=== PATIENT | female | born 2000 | race Two or more races ===

== ENCOUNTER 2024-12-05 19:17 | Emergency (ER) | payer OTHER ==
[2024-12-05 19:56] VITALS: BP 125/62; PULSE 92; RESP 18; TEMP 97.4; BMI 23.1
[2024-12-05] MEDS ORDERED: ONDANSETRON 4 MG/2 ML VIAL ONE (21:45)
[2024-12-05] MEDS ORDERED: ACETAMINOPHEN INJECTION 100 ML ONE (21:45)
[2024-12-05] MEDS: LACTATED RINGERS SOLUTION 1,000 ML/1,000 ML INFUS.BAG IV SCH (22:11)
[2024-12-05] MEDS: ACETAMINOPHEN 1000 MG/100 ML BAG IVPB ONE (22:11)
[2024-12-05] MEDS: ONDANSETRON 4 MG/2 ML VIAL IVPUSH ONE (22:11)
[2024-12-05 22:21] LABS: ABSOLUTE IMMATURE GRANULOCYTES 0.03 x10^3/uL (0.0-0.031); BASOPHILS # 0.02 x10^3/uL (0.01-0.08); EOSINOPHIL % 2.5 % (0.7-5.8); EOSINOPHILS # 0.16 x10^3/uL (0.04-0.36); MCHC 33.2 g/dl (32.2-35.5); MEAN CELL VOLUME 86.2 fl (79.4-94.8); MEAN PLT VOLUME 10.7 fl (9.4-12.3); MONOCYTE # 0.31 x10^3/uL (0.24-0.86); MONOCYTE % 4.9 % (4.7-12.5); RDW 12.4 % (12.1-16.5)
[2024-12-05 22:52] LABS: CO2 25.0 mmol/L (21-32); GLUCOSE,RANDOM 83.0 mg/dL (74-106)
[2024-12-05 22:55] LABS: CREATININE 0.5 mg/dL (0.55-1.3); SGOT/AST 13.0 U/L (15-37); SGPT/ALT 21.0 U/L (13-61)
[2024-12-05 22:57] LABS: TOT PROT 8.1 g/dl (6.4-8.2)
[2024-12-05 22:58] LABS: ALK PHOS 46.0 U/L (45-117)
[2024-12-05 23:05] LABS: URINE APPEARANCE CLEAR; URINE BILIRUBIN NEGATIVE (NEGATIVE); URINE COLOR YELLOW; URINE GLUCOSE (UA) NEGATIVE (NEGATIVE); URINE KETONE 1+ (NEGATIVE); URINE LEUK ESTERASE NEGATIVE (NEGATIVE); URINE NITRITE NEGATIVE (NEGATIVE); URINE PROTEIN NEGATIVE (NEGATIVE); URINE UROBILINOGEN 0.2 mg/dL (0.2-1.0)
[2024-12-05 23:46] LABS: HCV DIAGNOSTIC IN-HOUSE W/RFLX NON-REACTIVE (NONREACTIVE); HIV INTERPRETATION NEGATIVE (NEGATIVE)
== END 2024-12-06 00:33 | disposition home or self-care (01) ==
LOC: JER 19:17
PROC: 3E033NZ Introduction of Analgesics, Hypnotics, Sedatives into Peripheral Vein, Percutaneous Approach (ICD-10-PCS; principal; 2024-12-05)
PROC: 3E033GC Introduction of Other Therapeutic Substance into Peripheral Vein, Percutaneous Approach (ICD-10-PCS; 2024-12-05)
DX: O26.891 Other specified pregnancy related conditions, first trimester (principal); R10.30 Lower abdominal pain, unspecified; Z3A.01 Less than 8 weeks gestation of pregnancy
CPT/HCPCS: 36415; 76817-TC; 80053; 81003; 84702; 85025; 86803; 86850; 86900; 86901; 87389; 99284-25